=== PATIENT | male | born 1960 | race American Indian/Alaskan Native ===

== ENCOUNTER 2017-12-24 17:02 | Emergency (ER) | payer MEDICAID ==
[2017-12-24] MEDS ORDERED: CATAPRES PO ONE (18:01)
[2017-12-24 18:25] LABS: Basophils % (Auto) 0.8 % (0.0-1.8); Eosinophils # (Auto) 0.1 K/mm3 (0.0-0.4); Eosinophils % (Auto) 2.2 % (0.0-4.3); Hematocrit 41.2 % (35.5-45.6); Hemoglobin 13.9 gm/dl (11.8-15.2); Lymphocytes # (Auto) 1.9 K/mm3 (1.2-5.4); Lymphocytes % (Auto) 32.9 % (13.4-35.0); Mean Corpuscular HGB Conc 34 % (32-34); Mean Corpuscular Hemoglobin 30 pg (28-32); Mean Corpuscular Volume 87 fl (84-94); Monocytes # (Auto) 0.7 K/mm3 (0.0-0.8); Monocytes % (Auto) 12.2 % (0.0-7.3); Platelet Count 206 K/mm3 (140-440); Red Blood Count 4.72 M/mm3 (3.65-5.03); Red Cell Distribution Width 13.7 % (13.2-15.2)
--- NOTE | 2017-12-24 18:43 | Cat Scan Report ---
FINAL REPORT EXAM: CT HEAD/BRAIN WO CON HISTORY: headache and elevated b/p TECHNIQUE: 2.5 millimeter axial images from the skullbase to the vertex. Comparison: None FINDINGS: Areas of low attenuation in the subcortical and deep white matter of the frontal and parietal lobes are nonspecific in appearance but may represent areas of chronic post ischemic demyelination/small vessel disease. There is no evidence of an acute intracranial process, intracranial hemorrhage or mass effect. The ventricles are normal size. The visualized portions of the orbits, paranasal and mastoid sinuses are unremarkable. The bony structures are unremarkable in appearance. IMPRESSION: 1. No evidence of an acute intracranial process, intracranial hemorrhage or mass effect. 2. 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 If there is a clinical suspicion of an acute intracranial process and if further imaging is required, MRI may be helpful.
[2017-12-24 18:49] LABS: Alanine Aminotransferase 24 units/L (7-56); Albumin 4.3 g/dL (3.9-5); BUN/Creatinine Ratio 16; Blood Urea Nitrogen 18 mg/dL (9-20); Calcium 9.5 mg/dL (8.4-10.2); Hemolysis Index 5
--- NOTE | 2017-12-24 21:32 | Emergency Department Report ---
ED General Adult HPI - General Chief complaint: High BP Stated complaint: REFILL MEDICATION BP Time Seen by Provider: 12/24/17 21:02 Source: patient, family, old records reviewed (1st visit) Mode of arrival: Ambulatory Limitations: No Limitations - History of Present Illness Initial comments: 57-year-old male with a past medical history hypertension presents to the Hospital complaining of headache and dizziness 2 days with elevated blood pressure. Patient has been noncompliant with blood pressure medication 1 month because he recently relocated here from [place]. Does not have a local PMD. Complains of a mild headache that is intermittent for the last 2 days and generalized malaise. Patient noticed his blood pressure was significantly elevated when he checked it at home and therefore came to the ER for evaluation. He denies neck pain, blurred vision, focal weakness, focal numbness , chest pain, short of breath, nausea, vomiting, abdominal pain, or paresthesias. Patient received clonidine 0.2 mg in triage and reports feeling better. - Related Data Previous Rx's Medication Instructions Recorded Last Taken Type Enalapril Maleate [Vasotec] 20 mg PO DAILY #30 tablet 12/24/17 Unknown Rx hydroCHLOROthiazide [Hctz] 12.5 mg PO QDAY #30 capsule 12/24/17 Unknown Rx Allergies Allergy/AdvReac Type Severity Reaction Status Date / Time No Known Allergies Allergy Unverified 12/24/17 17:55 ED Review of Systems ROS: Stated complaint: REFILL MEDICATION BP Other details as noted in HPI Comment: All other systems reviewed and negative ED Past Medical Hx - Past Medical History Hx Hypertension: Yes - Surgical History Additional Surgical History: Tonsilectomy - Social History Smoking Status: Former Smoker Substance Use Type: None - Medications Home Medications: Home Medications Medication Instructions Recorded Confirmed Last Taken Type Enalapril Maleate [Vasotec] 20 mg PO DAILY #30 tablet 12/24/17 Unknown Rx hydroCHLOROthiazide [Hctz] 12.5 mg PO QDAY #30 capsule 12/24/17 Unknown Rx ED Physical Exam - General Limitations: No Limitations - Other Other exam information: General: No limitations, patient is alert in no acute distress Head exam: Atraumatic, normocephalic Eyes exam: Normal appearance, pupils equal reactive to light, extraocular movements intact ENT: Moist mucous membrane, normal oropharynx Neck exam: Normal inspection, full range of motion, no meningismus nontender Respiratory exam: Clear to auscultation bilateral, no wheezes, rales, crackles Cardiovascular: Normal rate and rhythm, normal heart sounds Abdomen: Soft, nondistended, and nontender, with normal bowel sounds, no rebound, or guarding Extremity: Full range of motion normal inspection no deformity Back: Normal Inspection, full range of motion, no tenderness Neurologic: Alert, oriented x3, cranial nerves intact, no motor or sensory deficit. NIHHS 0 Psychiatric: normal affect, normal mood Skin: Warm, dry, intact ED Course Vital Signs 12/24/17 12/24/17 12/24/17 17:49 18:11 18:46 Temperature 98.5 F Pulse Rate 110 H 103 H Respiratory 16 Rate Blood Pressure 251/138 231/128 Blood Pressure 197/109 [Left] O2 Sat by Pulse 97 Oximetry 12/24/17 19:34 Temperature 98.3 F Pulse Rate 93 H Respiratory 18 Rate Blood Pressure 183/95 Blood Pressure [Left] O2 Sat by Pulse 99 Oximetry ED Medical Decision Making - Lab Data Result diagrams: 12/24/17 18:04 12/24/17 18:04 Lab Results 12/24/17 12/24/17 12/24/17 Range/Units 18:04 18:04 18:04 WBC 5.7 (4.5-11.0) K/mm3 RBC 4.72 (3.65-5.03) M/mm3 Hgb 13.9 (11.8-15.2) gm/dl Hct 41.2 (35.5-45.6) % MCV 87 (84-94) fl MCH 30 (28-32) pg MCHC 34 (32-34) % RDW 13.7 (13.2-15.2) % Plt Count 206 (140-440) K/mm3 Lymph % (Auto) 32.9 (13.4-35.0) % Banks % (Auto) 12.2 H (0.0-7.3) % Eos % (Auto) 2.2 (0.0-4.3) % Baso % (Auto) 0.8 (0.0-1.8) % Lymph # 1.9 (1.2-5.4) K/mm3 Banks # 0.7 (0.0-0.8) K/mm3 Eos # 0.1 (0.0-0.4) K/mm3 Baso # 0.0 (0.0-0.1) K/mm3 Seg Neutrophils % 51.9 (40.0-70.0) % Seg Neutrophils # 3.0 (1.8-7.7) K/mm3 Sodium 141 (137-145) mmol/L Potassium 4.0 (3.6-5.0) mmol/L Chloride 100.3 (98-107) mmol/L Carbon Dioxide 27 (22-30) mmol/L Anion Gap 18 mmol/L BUN 18 (9-20) mg/dL Creatinine 1.1 (0.8-1.5) mg/dL Estimated GFR > 60 ml/min BUN/Creatinine Ratio 16 % Glucose 96 (75-100) mg/dL Calcium 9.5 (8.4-10.2) mg/dL Total Bilirubin 0.40 (0.1-1.2) mg/dL AST 21 (5-40) units/L ALT 24 (7-56) units/L Alkaline Phosphatase 112 (35-129) units/L Troponin T < 0.010 (0.00-0.029) ng/mL Total Protein 7.4 (6.3-8.2) g/dL Albumin 4.3 (3.9-5) g/dL Albumin/Globulin Ratio 1.4 % - EKG Data -: EKG Interpreted by Me EKG shows normal: sinus rhythm, axis (qrs 71), QRS complexes (qrsd 89), ST-T waves (lvh with strain, no stemi) Rate: normal - EKG Data When compared to previous EKG there are: previous EKG unavailable - Medical Decision Making Uncontrolled hypertension Secondary to medication noncompliance Symptom of generalized malaise, mild dizziness and mild headache improved after clonidine 0.2 mg and reduction of blood pressure Patient denies chest pain/sob and EKG has LVH with strain and negative cardiac enzymes We'll be discharged with refill in his medication and follow-up with PMD - Differential Diagnosis htn emergency vs urgency, htn lilly, ich, renal failure, mi Critical Care Time: No Critical care attestation.: If time is entered above; I have spent that time in minutes in the direct care of this critically ill patient, excluding procedure time. ED Disposition Clinical Impression: Uncontrolled hypertension, Noncompliance with medication regimen Disposition: DC-01 TO HOME OR SELFCARE Is pt being admited?: No Does the pt Need Aspirin: No Condition: Stable Instructions: Hypertension (ED) Additional Instructions: Take the medication as prescribed. Follow up with the doctor or clinic provided. Return if symptoms worsen as indicated by your discharge instructions Prescriptions: Enalapril Maleate [Vasotec] 20 mg PO DAILY #30 tablet hydroCHLOROthiazide [Hctz] 12.5 mg PO QDAY #30 capsule Referrals: FREYA FERREIRA MD [Staff Physician] - 3-[address] [facility] [Provider Group] - 3-5 Days Time of Disposition: 21:37 - Assessment Assessment Interval: Baseline - Level of Consciousness 1a. Level of Consciousness: alert - LOC Questions 1b. LOC Questions: answers correctly - LOC Command 1c. LOC Commands: performs tasks correctly - Best Gaze 2. Best Gaze: normal - Visual 3. Visual: no visual loss - Facial Palsy 4. Facial Palsy: normal symmetrical movement - Motor Arm 5b. Motor Arm Right: no drift 5a. Motor Arm Left: no drift - Motor Leg 6a. Motor Leg Left: no drift 6b. Motor Leg Right: no drift - Limb Ataxia 7. Limb Ataxia: absent - Sensory 8. Sensory: normal - Best Language 9. Best Language: no aphasia - Dysarthria 10. Dysarthria: normal - Extinction and Inattention 11. Extinction/Inattention: no abnormality - Scoring Total Score: 0 Stroke Severity: No Stroke Symptoms
[2017-12-24 22:02] VITALS: BP 161/91
== END 2017-12-24 22:10 | disposition home or self-care (01) ==
LOC: ED 17:02
DX: I10 Essential (primary) hypertension (principal); Z90.89 Acquired absence of other organs; Z87.891 Personal history of nicotine dependence
CPT/HCPCS: 36415; 70450; 80053; 84484; 85025; 93005; 93010